=== PATIENT | male | born 1980 | race Caucasian/White ===

== ENCOUNTER 2016-11-10 09:02 | Emergency (ER) | payer OTHER ==
[2016-11-10 09:17] VITALS: BP 129/81
[2016-11-10] MEDS ORDERED: Ketorolac INJ* 30 MG/ML 1 ML VIAL IV ONE (10:10)
[2016-11-10] MEDS ORDERED: Cyclobenzaprine TAB* 10 MG PO ONE (10:12)
[2016-11-10] MEDS ORDERED: HYDROcodone/ACETAMIN 5-325 MG* 1 TAB PO ONE (10:14)
[2016-11-10 10:21] LABS: Hematocrit 44 % (42-52); Hemoglobin 14.6 g/dl (14.0-18.0); Mean Corpuscular HGB Conc 33 g/dl (31-36); Mean Corpuscular Hemoglobin 29 pg (27-31); Mean Corpuscular Volume 89 fL (80-94); Mean Platelet Volume 8 um3 (7.4-10.4); Red Blood Count 4.95 10^6/ul (4.0-5.4); Red Cell Distribution Width 15 % (10.5-15); White Blood Count 8.6 10^3/ul (3.5-10.8)
[2016-11-10 10:32] LABS: Albumin 3.9 g/dL (3.2-5.2); BUN/Creatinine Ratio 19.3 (8-20); Calcium 8.7 mg/dL (8.6-10.3); EGFR African American 135.6 (>60); EGFR Non-African American 105.4 (>60); Globulin 2.6 g/dL (2-4); Potassium 4.2 mmol/L (3.5-5.0); Total Bilirubin 0.3 mg/dL (0.2-1.0); Total Protein 6.5 g/dL (6.4-8.9)
--- NOTE | 2016-11-10 10:56 | RAD ---
INDICATION: Pain with inspiration between the shoulder blades. COMPARISON: There are no prior studies available for comparison. TECHNIQUE: Dual-energy PA and lateral views of the chest were obtained. FINDINGS: The heart is within normal limits in size. Mediastinal and hilar contours appear within normal limits. The lungs are clear. No pleural effusion or pneumothorax is seen. IMPRESSION: NO EVIDENCE FOR ACTIVE CARDIOPULMONARY DISEASE.
--- NOTE | 2016-11-10 10:58 | RAD ---
INDICATION: Back pain. COMPARISON: There are no prior studies available for comparison. TECHNIQUE: AP and lateral films of the spine were obtained centered at the dorsal lumbar junction. FINDINGS: There is a mild dorsal lumbar scoliosis convex toward the right in the dorsal region and toward the left in the lumbar region. The vertebra are otherwise in normal alignment. No fracture is seen. Disc spaces appear maintained. IMPRESSION: MILD SCOLIOSIS, OTHERWISE UNREMARKABLE STUDY.
--- NOTE | 2016-11-10 13:50 | ED ---
I, Oh,Soohmaryun, scribed for Tor Simmons MD on 11/10/16 at 1005 . Back Pain - HPI Summary HPI Summary: This 36 y/o male presents to ED for mid-upper back pain since 2 days ago. He reports heavy lifting on day of onset, but denies any fall or any trauma. Deep breath makes the pain worse, and pt reports dyspnea. Lying back also aggravates the pain. Upright position makes the pain better. Positive chronic, intermittent , nonproductive cough. Pt is current smoker. Pt denies any CP, weakness, numbness/tingling, sore throat, rhinorrhea, n/v, or low back pain. He reports PMHx of "similar neck problem". - History of Current Complaint Chief Complaint: EDBackInjuryPain Stated Complaint: BACK PAIN Time Seen by Provider: 11/10/16 09:30 Hx Obtained From: Patient Onset/Duration: Gradual Onset, Lasting Days Onset/Duration: Started Days Ago, Still Present Timing: Constant Back Pain Location: Is Discrete @ - mid upper back Pain Intensity: 6 Pain Scale Used: 0-10 Numeric Character: Dull Aggravating Symptom(s): Movement - deep breath and lying down Alleviating Symptom(s): Rest, Position - upright position Associated Signs And Symptoms: Negative: Weakness, Numbness, Tingling, Abdominal Pain - Allergies/Home Medications Allergies/Adverse Reactions: Allergies Allergy/AdvReac Type Severity Reaction Status Date / Time Diazepam Allergy Unknown Verified 11/10/16 09:19 Reaction Details PMH/Surg Hx/FS Hx/Imm Hx Psychiatric History: Reports: Hx Anxiety Denies: Hx Eating Disorder, Hx of Violent Episodes Against Others Infectious Disease History: No Infectious Disease History: Denies: Traveled Outside the [place] in Last 30 Days - Family History Family History: FHx of alcohol abuse. FHx of depression. FHx of anxiety disorders - Social History Alcohol Use: None Substance Use Type: Reports: None Hx Tobacco Use: Yes Smoking Status (MU): Current Every Day Smoker Review of Systems Negative: Fever Negative: incontinence Positive: Other - back pain Negative: Weakness, Numbness Negative: Anxious, Depressed All Other Systems Reviewed And Are Negative: Yes Physical Exam - Summary Physical Exam Summary: TTP T6-7 The patient is well-nourished in no acute distress and in no acute pain. The skin is warm and dry and skin color reflects adequate perfusion. Neck is supple with full range of motion and non-tender. There are no carotid bruits. There is no neck vein distension. Respiratory: Chest is non-tender. Lungs are clear to auscultation and breath sounds are symmetrical and equal. Occasional wheeze. Abdomen: The abdomen is soft and non-tender. There are normal bowel sounds heard in all four quadrants and there is no organomegaly palpated. Musculoskeletal: Paracervical region at T6-7 TTP, left sided. Spasm noted. Extremities are non-tender with full range of motion. There is good capillary refill. There is no peripheral edema or calf tenderness elicited. Neurological: Patient is alert and oriented to person, place and time. The patient has symmetrical motor strength in all four extremities. Cranial nerves are grossly intact. Deep tendon reflexes are symmetrical and equal in all four extremities. Psychiatric: The patient has an appropriate affect and does not exhibit any anxiety or depression. Triage Information Reviewed: Yes Vital Signs On Initial Exam: Initial Vitals Temp Pulse Resp BP Pulse Ox 98.7 F 84 16 129/81 100 11/10/16 09:05 11/10/16 09:05 11/10/16 09:05 11/10/16 09:05 11/10/16 09:05 Vital Signs Reviewed: Yes Diagnostics - Vital Signs Vital Signs Temp Pulse Resp BP Pulse Ox 11/10/16 09:05 98.7 F 84 16 129/81 100 - Laboratory Lab Results: Lab Results 11/10/16 11/10/16 11/10/16 Range/Units 10:10 10:10 10:10 WBC 8.6 (3.5-10.8) 10^3/ul RBC 4.95 (4.0-5.4) 10^6/ul Hgb 14.6 (14.0-18.0) g/dl Hct 44 (42-52) % MCV 89 (80-94) fL MCH 29 (27-31) pg MCHC 33 (31-36) g/dl RDW 15 (10.5-15) % Plt Count 190 (150-450) 10^3/ul MPV 8 (7.4-10.4) um3 Neut % (Auto) 65.1 (38-83) % Lymph % (Auto) 23.9 L (25-47) % [place] % (Auto) 8.3 (1-9) % Eos % (Auto) 2.3 (0-6) % Baso % (Auto) 0.4 (0-2) % Absolute Neuts (auto) 5.6 (1.5-7.7) 10^3/ul Absolute Lymphs (auto) 2.0 (1.0-4.8) 10^3/ul Absolute Monos (auto) 0.7 (0-0.8) 10^3/ul Absolute Eos (auto) 0.2 (0-0.6) 10^3/ul Absolute Basos (auto) 0 (0-0.2) 10^3/ul Absolute Nucleated RBC 0 10^3/ul Nucleated RBC % 0 D-Dimer, Quantitative < 200 (Less Than 230) ng/mL Sodium 135 (133-145) mmol/L Potassium 4.2 (3.5-5.0) mmol/L Chloride 106 (101-111) mmol/L Carbon Dioxide 26 (22-32) mmol/L Anion Gap 3 (2-11) mmol/L BUN 16 (6-24) mg/dL Creatinine 0.83 (0.67-1.17) mg/dL Est GFR ( Amer) 135.6 (>60) Est GFR (Non-Af Amer) 105.4 (>60) BUN/Creatinine Ratio 19.3 (8-20) Glucose 94 (70-100) mg/dL Lactic Acid (0.5-2.0) mmol/L Calcium 8.7 (8.6-10.3) mg/dL Total Bilirubin 0.30 (0.2-1.0) mg/dL AST 17 (13-39) U/L ALT 19 (7-52) U/L Alkaline Phosphatase 44 (34-104) U/L Troponin I 0.00 (<0.04) ng/mL B-Natriuretic Peptide ( - 100) pg/mL Total Protein 6.5 (6.4-8.9) g/dL Albumin 3.9 (3.2-5.2) g/dL Globulin 2.6 (2-4) g/dL Albumin/Globulin Ratio 1.5 (1-3) 11/10/16 11/10/16 Range/Units 10:10 10:10 WBC (3.5-10.8) 10^3/ul RBC (4.0-5.4) 10^6/ul Hgb (14.0-18.0) g/dl Hct (42-52) % MCV (80-94) fL MCH (27-31) pg MCHC (31-36) g/dl RDW (10.5-15) % Plt Count (150-450) 10^3/ul MPV (7.4-10.4) um3 Neut % (Auto) (38-83) % Lymph % (Auto) (25-47) % [place] % (Auto) (1-9) % Eos % (Auto) (0-6) % Baso % (Auto) (0-2) % Absolute Neuts (auto) (1.5-7.7) 10^3/ul Absolute Lymphs (auto) (1.0-4.8) 10^3/ul Absolute Monos (auto) (0-0.8) 10^3/ul Absolute Eos (auto) (0-0.6) 10^3/ul Absolute Basos (auto) (0-0.2) 10^3/ul Absolute Nucleated RBC 10^3/ul Nucleated RBC % D-Dimer, Quantitative (Less Than 230) ng/mL Sodium (133-145) mmol/L Potassium (3.5-5.0) mmol/L Chloride (101-111) mmol/L Carbon Dioxide (22-32) mmol/L Anion Gap (2-11) mmol/L BUN (6-24) mg/dL Creatinine (0.67-1.17) mg/dL Est GFR ( Amer) (>60) Est GFR (Non-Af Amer) (>60) BUN/Creatinine Ratio (8-20) Glucose (70-100) mg/dL Lactic Acid 0.8 (0.5-2.0) mmol/L Calcium (8.6-10.3) mg/dL Total Bilirubin (0.2-1.0) mg/dL AST (13-39) U/L ALT (7-52) U/L Alkaline Phosphatase (34-104) U/L Troponin I (<0.04) ng/mL B-Natriuretic Peptide 8 ( - 100) pg/mL Total Protein (6.4-8.9) g/dL Albumin (3.2-5.2) g/dL Globulin (2-4) g/dL Albumin/Globulin Ratio (1-3) Result Diagrams: 11/10/16 10:10 11/10/16 10:10 Lab Statement: Any lab studies that have been ordered have been reviewed, and results considered in the medical decision making process. - Radiology T-spine Xray Interpretation: No Acute Changes - MILD SCOLIOSIS, OTHERWISE UNREMARKABLE STUDY. Radiology Interpretation Completed By: Radiologist CXR Xray Interpretation: No Acute Changes Radiology Interpretation Completed By: Radiologist - EKG 9:20 Cardiac Rate: NL - 71 bpm EKG Rhythm: Sinus Rhythm EKG Interpretation: Early Repolarization; Normal [place] Re-Evaluation - Re-Evaluation First Eval Re-Evaluation Time: 11:36 Change: Improved Comment: The patient states that he feels much better. Reviewed Xray and lab results with the patient and he agrees with the treatment plan. Back Pain Course/Dx - Course Assessment/Plan: A 36 y/o male presents to ED for mid-upper back pain since 2 days ago. He reports heavy lifting on day of onset, but denies any fall or any trauma. Lab results were reviewed and WNL. Thoracic spine XRAY shows mild scoliosis. CXR shows no acute changes. In the ED course, the patient was given Flexeril, Provencal, and Toradol. PE, pneumonia, and MO were all considered and returned negative. The patient will be discharged home on Flexeril and Provencal and follow-up with his PCP. - Diagnoses Differential Diagnosis/HQI/PQRI: Positive: Arthritis, Fracture, Herniated Disc, Other - mi, pe, pneumonia, strain, Provider Diagnoses: Upper back strain Discharge - Discharge Plan Condition: Stable Disposition: HOME Prescriptions: Cyclobenzaprine TAB* [Flexeril TAB*] 10 mg PO TID PRN #30 tab PRN Reason: pain HYDROcodone/ACETAMIN 5-325 MG* [Provencal 5-325 TAB*] 1 tab PO Q6H PRN #20 tab MDD 4 PRN Reason: pain Patient Education Materials: Hydrocodone/Acetaminophen (By mouth), Cyclobenzaprine (By mouth), Back Pain (ED) Forms: *Work Release Referrals: Joann Billingsley [facility] PICKUP DRIVER [Primary Care Provider] - Additional Instructions: Please follow-up with your primary care physician in two days. The documentation as recorded by the Yan oscar Soohyun accurately reflects the service I personally performed and the decisions made by me, Tor Simmons MD.
== END 2016-11-10 11:50 | disposition home or self-care (01) ==
LOC: ED 09:02
DX: S29.012A Strain of muscle and tendon of back wall of thorax, initial encounter (principal); M54.9 Dorsalgia, unspecified; R06.00 Dyspnea, unspecified; F17.210 Nicotine dependence, cigarettes, uncomplicated; W19.XXXA Unspecified fall, initial encounter; Y93.9 Activity, unspecified; Y92.9 Unspecified place or not applicable
CPT/HCPCS: 36415; 71020; 72080; 80053; 83605; 83880; 84484; 85025; 85379; 93005; 96374; 99283; A9270-GY; J1885

== ENCOUNTER 2017-05-10 07:35 | Emergency (ER) | payer OTHER ==
[2017-05-10 07:38] VITALS: BP 138/89
[2017-05-10] MEDS ORDERED: Fluorescein Sodium TOPICAL* 1 MG TEST ONE (07:44)
[2017-05-10] MEDS ORDERED: oxyCODONE/Acetamin 5/325 MG* TAB PO ONE (07:55)
--- NOTE | 2017-05-10 08:21 | ED ---
Francesco Bautista Auryana, scribed for Omar Keller MD on 05/10/17 at 0753 . Throat Pain/Nasal Congestion - HPI Summary HPI Summary: 36 year old male presents with right eye pain starting yesterday at 19:00. Patient reports that last night he was unloading a trailer and poked himself in the eye. The pain is a 6/10. The pain is made worse by movement-8/10. He reports that it was difficult to sleep last night. He denies any significant PMHx. SHx is significant for tobacco use. He denies any significant FHx. - History of Current Complaint Chief Complaint: EDEyeProblem Time Seen by Provider: 05/10/17 07:41 Hx Obtained From: Patient Onset/Duration: Sudden Onset, Lasting Hours - about 12 hours ago - yesterday at 19:00, Still Present Severity: Moderate - 6/10 but on movement 8/10 Associated Signs And Symptoms: Negative: Negative - reports trouble sleeping Cough: None Related History: Smoking - Allergies/Home Medications Allergies/Adverse Reactions: Allergies Allergy/AdvReac Type Severity Reaction Status Date / Time Diazepam Allergy Unknown Verified 11/10/16 09:19 Reaction Details PMH/Surg Hx/FS Hx/Imm Hx Psychiatric History: Reports: Hx Anxiety Denies: Hx Eating Disorder, Hx of Violent Episodes Against Others Infectious Disease History: Denies: Traveled Outside the [place] in Last 30 Days - Family History Known Family History: Negative: Cardiac Disease, Hypertension, Diabetes Family History: FHx of alcohol abuse. FHx of depression. FHx of anxiety disorders - Social History Occupation: Employed Full-time Lives: With Family Alcohol Use: None Hx Substance Use: No Substance Use Type: Reports: None Hx Tobacco Use: Yes Smoking Status (MU): Current Every Day Smoker Review of Systems Positive: Other - reports trouble sleeping . Negative: Fever Positive: Other - pain on movement ENT: Negative Cardiovascular: Negative Respiratory: Negative Gastrointestinal: Negative Genitourinary: Negative Musculoskeletal: Negative Skin: Negative Neurological: Negative Psychological: Normal All Other Systems Reviewed And Are Negative: Yes Physical Exam - Summary Physical Exam Summary: VITAL SIGNS: Reviewed. GENERAL: Patient is a well-developed and nourished male who is lying comfortable in the stretcher. Patient is not in any acute respiratory distress. HEAD AND FACE: No signs of trauma. No ecchymosis, hematomas or skull depressions. No sinus tenderness. EYES: PERRLA, EOMI x 2, no nystagmus. Right corneal abrasion with diffuse conjunctiva erythema and increased lacrimation. EARS: Hearing grossly intact. Ear canals and tympanic membranes are within normal limits. MOUTH: Oropharynx within normal limits. NECK: Supple, trachea is midline, no adenopathy, no JVD, no carotid bruit, no c- spine tenderness, neck with full ROM. CHEST: Symmetric, no tenderness at palpation LUNGS: Clear to auscultation bilaterally. No wheezing or crackles. CVS: Regular rate and rhythm, S1 and S2 present, no murmurs or gallops appreciated. ABDOMEN: Soft, non-tender. No signs of distention. No rebound no guarding, and no masses palpated. Bowel sounds are normal. EXTREMITIES: FROM in all major joints, no edema, no cyanosis or clubbing. NEURO: Alert and oriented x 3. No acute neurological deficits. Speech is normal and follows commands. SKIN: Dry and warm. Triage Information Reviewed: Yes Vital Signs On Initial Exam: Initial Vitals Temp Pulse Resp BP Pulse Ox 97.9 F 67 17 138/89 98 05/10/17 07:36 05/10/17 07:36 05/10/17 07:36 05/10/17 07:36 05/10/17 07:36 Vital Signs Reviewed: Yes Diagnostics - Vital Signs Vital Signs Temp Pulse Resp BP Pulse Ox 05/10/17 07:36 97.9 F 67 17 138/89 98 - Laboratory Lab Statement: Any lab studies that have been ordered have been reviewed, and results considered in the medical decision making process. EENT Course/Dx - Course Assessment/Plan: 36 year old male presents with right eye pain starting yesterday at 19:00. Patient reports that last night he was unloading a trailer and poked himself in the eye. The pain is a 6/10. The pain is made worse by movement-8/10. He reports that it was difficult to sleep last night. He denies any significant PMHx. SHx is significant for tobacco use. He denies any significant FHx. I placed tetracaine drops in the right eye and the symptoms of pain improved. Then, I did fluorescein staining and there was a positive uptake of the stain across the central cornea. We will give the patient erythromycin ointment and a prescription for Percocet. Patient will be discharged home with follow up with ophthalmology. The patient was instructed to return to the emergency department if the pain increases despite pain medication, or if he develops fever, chills, or any headaches. All questions were answered at patient satisfaction. There were no further complaints or concerns. Lung exam before discharge: CTA B/L. Good air exchange. No wheezing or crackles heard. CVS: S1 and S2 present. No murmurs appreciated. Patient is alert and oriented x 3. Patient is hemodynamically stable. Patient will be discharged home with follow up PCP in the next 2-3 days - Differential Diagnoses Differential Diagnoses: Abrasion - Diagnoses Provider Diagnoses: Corneal abrasion Discharge - Discharge Plan Condition: Stable Disposition: HOME Prescriptions: Erythromycin TOPICAL GEL* [Erythromycin OPTH OINT*] 1 applic TOPICAL TID #1 tube oxyCODONE/Acetamin 5/325 MG* [Percocet 5/325 TAB*] 1 tab PO Q6H PRN #12 tab MDD 4 tabs PRN Reason: Pain Patient Education Materials: Corneal Abrasion (ED), Erythromycin (Into the eye ) Forms: *Work Release Referrals: Johnathon Buckley MD [Medical Doctor] - 2 Days Eye Complaint - HPI Summary HPI Summary: 36 year old male presents with right eye pain starting yesterday at 19:00. Patient reports that last night he was unloading a trailer and poked himself in the eye. The pain is a 6/10. The pain is made worse by movement-8/10. He reports that it was difficult to sleep last night. He denies any significant PMHx. SHx is significant for tobacco use. He denies any significant FHx. 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, Still Present Timing: Constant Severity Initially: Moderate Severity Currently: Moderate Location: Right Eye Discrete @: - cornea Character: Throbbing Alleviating Factor(s): Other - rest - slight improvement of the eye Associated Signs And Symptoms: Negative - pain on eye movement Eyes: 1 - abrasion - Allergies/Home Medications Allergies/Adverse Reactions: Allergies Allergy/AdvReac Type Severity Reaction Status Date / Time Diazepam Allergy Unknown Verified 11/10/16 09:19 Reaction Details The documentation as recorded by the Francesco oscar Auryana accurately reflects the service I personally performed and the decisions made by Krishna edge Walter, MD.
[2017-05-10] MEDS ORDERED: Erythromycin OPTH OINT* APPLIC OINT RIGHT EYE SCH (09:00)
== END 2017-05-10 08:22 | disposition home or self-care (01) ==
LOC: ED 07:35
DX: S05.01XA Injury of conjunctiva and corneal abrasion without foreign body, right eye, initial encounter (principal); W22.8XXA Striking against or struck by other objects, initial encounter; Y93.89 Activity, other specified; Y92.9 Unspecified place or not applicable; F17.200 Nicotine dependence, unspecified, uncomplicated
CPT/HCPCS: 99282; A9270-GY

== ENCOUNTER 2017-10-02 16:13 | Emergency (ER) | payer OTHER ==
[2017-10-02 17:59] LABS: Hematocrit 46 % (42-52); Hemoglobin 15.1 g/dl (14.0-18.0); Mean Corpuscular HGB Conc 33 g/dl (31-36); Mean Corpuscular Hemoglobin 29 pg (27-31); Mean Corpuscular Volume 89 fL (80-94); Mean Platelet Volume 7 um3 (7.4-10.4); Red Blood Count 5.16 10^6/ul (4.0-5.4); Red Cell Distribution Width 14 % (10.5-15); White Blood Count 14.5 10^3/ul (3.5-10.8)
[2017-10-02 18:15] LABS: Albumin 4.4 g/dL (3.2-5.2); BUN/Creatinine Ratio 16.2 (8-20); Calcium 9.4 mg/dL (8.6-10.3); EGFR African American 110.6 (>60); Globulin 3.1 g/dL (2-4); Total Bilirubin 0.3 mg/dL (0.2-1.0); Total Protein 7.5 g/dL (6.4-8.9)
[2017-10-02 18:55] VITALS: BP 0/0
== END 2017-10-02 17:55 | disposition left against medical advice (07) ==
LOC: ED 16:13
DX: R10.30 Lower abdominal pain, unspecified (principal); Z53.21 Procedure and treatment not carried out due to patient leaving prior to being seen by health care provider
CPT/HCPCS: 36415; 80053; 83690; 85025; 86141

== ENCOUNTER 2017-10-03 07:39 | Inpatient (IN) | payer OTHER ==
[2017-10-03 09:35] LABS: Hematocrit 43 % (42-52); Hemoglobin 14.5 g/dl (14.0-18.0); Mean Corpuscular HGB Conc 33 g/dl (31-36); Mean Corpuscular Hemoglobin 30 pg (27-31); Mean Corpuscular Volume 88 fL (80-94); Mean Platelet Volume 7 um3 (7.4-10.4); Red Blood Count 4.91 10^6/ul (4.0-5.4); Red Cell Distribution Width 14 % (10.5-15); White Blood Count 15.8 10^3/ul (3.5-10.8)
[2017-10-03 09:37] LABS: Urine Bacteria Absent (Absent); Urine Bilirubin Negative (Negative); Urine Glucose Negative (Negative); Urine Nitrite Negative (Negative)
[2017-10-03] MEDS ORDERED: Morphine INJ* 2 MG/ML 1 ML CARPUJECT IV ONE ×2 (09:40→13:46)
[2017-10-03 09:50] LABS: Albumin 3.9 g/dL (3.2-5.2); BUN/Creatinine Ratio 17.9 (8-20); Calcium 9.1 mg/dL (8.6-10.3); EGFR African American 133.7 (>60); Globulin 2.9 g/dL (2-4); Potassium 4.3 mmol/L (3.5-5.0); Total Bilirubin 0.3 mg/dL (0.2-1.0); Total Protein 6.8 g/dL (6.4-8.9)
[2017-10-03] MEDS ORDERED: Morphine INJ* 2 MG/ML 1 ML SYRINGE (TWO MG - NEW SYRINGE VERSION) ONE (09:52)
[2017-10-03] MEDS ORDERED: Iohexol 300* (CONTRAST) 10 ML SDV IV ONE (11:00)
--- NOTE | 2017-10-03 11:42 | RAD ---
Indication: Lower abdominal pain. Contrast: Administered 97.1 ml of OMNIPAQUE 300 mg/ml CT of the abdomen and pelvis was performed after oral and IV contrast administration. Coronal and sagittal reconstructed images were obtained. Lung bases demonstrate no pleural fluid, nodules or masses. Heart is of normal size without pericardial effusion. Liver is normal in size. No focal lesions or intrahepatic duct dilatation is noted. Area of focal fatty sparing is noted in the anterior medial segment left lobe of liver. The gallbladder demonstrates no calcified gallstones. No pericholecystic fluid or wall thickening is noted. Spleen demonstrates multiple calcifications from old granulomatous disease. Pancreas demonstrates no mass or pancreatic ductal dilatation. The common duct is not dilated. No adrenal masses are noted. The kidneys demonstrate symmetric nephrograms without focal lesions. No retroperitoneal lymphadenopathy is noted. CT of the pelvis demonstrates no retroperitoneal or pelvic adenopathy. Mildly atherosclerotic aorta is noted. No dilated loops of bowel are noted. The colon is filled with stool. There is wall thickening noted in the sigmoid colon. There appears to be a loculated fluid collection just to the left sigmoid colon measuring 3.2 x 3.5 cm. This may represent a peridiverticular abscess. IMPRESSION: Likely diverticulitis with a 3.4 cm peridiverticular abscess in the pelvis. Old granulomatous disease of the spleen is noted.
[2017-10-03] MEDS ORDERED: Ondansetron INJ* 2 MG/ML VIAL IV PRN (13:59)
[2017-10-03] MEDS: Ciprofloxacin 400MG IVPREMIX(* 400 MG/200 ML BAG IVPB SCH (14:36)
[2017-10-03] MEDS: metroNIDAZOLE IV 500 MG/100ML* 500 MG/100 ML BAG IVPB SCH ×2 (17:08→21:18)
[2017-10-03] MEDS: Morphine INJ* 2 MG/ML 1 ML SYRINGE (TWO MG - NEW SYRINGE VERSION) IV PRN ×2 (18:01→21:54)
--- NOTE | 2017-10-03 21:13 | CONS ---
CC: [facility]; [facility]; [facility] [place] * CONSULTATION REPORT: DATE OF CONSULT: 10/03/17 REFERRING PROVIDER: Dr. Nirmal Mar from the emergency room. REASON FOR CONSULT: Left lower quadrant and suprapubic pain. HISTORY OF PRESENT ILLNESS: Mr. Anibal Murray is a 36-year-old gentleman who has an otherwise unremarkable past medical history, who developed some left lower quadrant and suprapubic discomfort almost 2 weeks ago. He states that he was treated with Augmentin for a dental infection and had some looser bowel movements prior to that, but he has had no fevers, shakes, or chills. He has had no back discomfort. He has had no blood per rectum or melena. He has had no urinary complaints. The pain is constant and he describes shooting, stabbing discomfort some times down into his scrotum. He has had a good appetite, but eating irregular diet. He presented to the emergency room after the pain became increasingly uncomfortable and unbearable. When seen in the emergency room, he was noted to be afebrile with stable vital signs. His laboratory workup included a white blood cell count of 15,800. Electrolytes, BUN, and creatinine were all within normal limits. He had normal liver transaminases. Urinalysis showed 1+ blood, but otherwise was unremarkable. He underwent a CT scan of the abdomen and pelvis. I did review these images. This shows wall thickening noted in the sigmoid colon. I do not appreciate significant amount of diverticular disease, however. There appears to be a loculated fluid collection, possibly consistent with an abscess versus a phlegmon about 3 cm x 3.5 cm just to the left of the sigmoid colon. There is no extraluminal air, significant free abdominal fluid. There is no evidence of obstruction. The bladder appeared to be unremarkable. The patient is being admitted to the medical service and surgical consultation to be obtained. PAST MEDICAL HISTORY: Unremarkable. PAST SURGICAL HISTORY: None. ALLERGIES: DIAZEPAM. SOCIAL HISTORY: He smokes. He does not drink alcohol. 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 He lives in the [place] area. REVIEW OF SYSTEMS: Otherwise unremarkable. PHYSICAL EXAM: Temperature 98.9, pulse 81, blood pressure 156/88. In general, he is a slender male, sitting upright in bed, appears to be in no apparent distress. The lungs were clear to auscultation with normal respiratory effort. Heart has a regular rate and rhythm without murmurs, rubs, or gallops. His abdomen is soft and nondistended. He had diminished bowel sounds throughout. There are no prior surgical incisions. I appreciate no hernias. He has tenderness in the left lower quadrant and suprapubic area, fairly localized area with some voluntary guarding, but no peritoneal signs, rigidity or generalized tenderness. He is nondistended. Psychiatric: He is awake, alert, and oriented x3. He appears to have normal judgement and insight. IMPRESSION: Colitis with thickening of the sigmoid colon, a possible diverticula with an apparent possible diverticular abscess and/or phlegmon. There is no extraluminal air. He does not have generalized peritonitis and although he does have a leukocytosis, does not have overt sepsis. He gives a history of recently being on oral antibiotics for a dental condition , but does not have any long-term history of GI issues or problems. At this point, I do not feel that there is an urgent surgical indication present and would recommend treating this with IV antibiotics, IV fluids and a limited diet. I am not certain that the small possible abscess is amenable to drainage nor does it need to be. This may well be a phlegmon, but it may need serial CAT scans to follow before decision on this could be made. At this point , I agree with IV antibiotics and observation. I discussed all of this with him. Certainly want to avoid emergent surgery in this situation and I discussed this with him and I answered his questions. Thank you for the consultation. We will follow him closely with you. [id number]/[facility] #: [id number] RINA
--- NOTE | 2017-10-03 22:04 | HP ---
CC: Joann Billingsley NP * HISTORY AND PHYSICAL: DATE OF ADMISSION: 10/03/17 PRIMARY CARE PROVIDER: Joann Billingsley NP ATTENDING PHYSICIAN: Dr. Samuel Mcmanus * (dictated by Verenice Alejandro NP) HISTORY OF PRESENT ILLNESS: Mr. Murray is a 36-year-old male with past medical history significant for anxiety and depression, who presents to the hospital with complaints of significant abdominal pain for 3 days. The patient reports that the pain is constant, he has found nothing that makes it better or worse. He has tried ibuprofen and acetaminophen at home. He reports that he has actually had this pain for the last 3 weeks but it has become more significant over the last 3 days. The pain is located in his lower abdomen. It does not radiate. He denies any fever, chills, nausea, vomiting, bloody stools, dysuria, urinary frequency, hematuria, flank pain, shortness of breath, chest pain. Due to his continued symptoms, he presented to the emergency room for further evaluation. While in the emergency room, the patient had labs significant for leukocytosis of 15.8. He had a negative urinalysis. He had an abdomen and pelvis CT showing a likely diverticulitis and a peridiverticular abscess. The ER provider contacted the surgeon, who felt he just needed IV antibiotics and not surgical intervention at this time. The hospitalists were asked to evaluate the patient for admission. PAST MEDICAL HISTORY: Anxiety and depression. PAST SURGICAL HISTORY: None. HOME MEDICATIONS: None. ALLERGIES: DIAZEPAM. FAMILY HISTORY: The patient denies any family history of coronary artery disease, diabetes mellitus. He reports a family history of lung cancer. SOCIAL HISTORY: The patient smokes a pack a day and has smoked for approximately 20 years. He denies alcohol or recreational drug use. His father , Kumar Murray, will be his surrogate medical decision maker in the event he is unable to make decisions for himself. REVIEW OF SYSTEMS: I performed a 14-point review of systems. All the pertinent positives and negatives are mentioned in the history of present illness. The remaining review of systems is negative. PHYSICAL EXAMINATION GENERAL APPEARANCE: The patient is alert, pleasant, and appears to be in no acute distress. VITAL SIGNS: Temperature 98.9, heart rate 81, respiratory rate 19, O2 sat 96% on room air, blood pressure 156/88. HEENT: Head: Normocephalic, atraumatic. EENT: Pupils are equal and reactive to light. Extraocular movements are intact. RESPIRATORY: There is no accessory muscle use. Lungs are clear to auscultation bilateral. CARDIOVASCULAR: Regular rate and rhythm. S1, S2 present. There are no murmurs, rubs, or gallops heard. ABDOMEN: Soft, nontender, and nondistended. There are bowel sounds present x4. EXTREMITIES: There is no lower extremity edema. DP and PT pulses are 2+ and symmetric. NEUROLOGIC: The patient is alert and oriented x4. Cranial nerves II through XII are grossly intact. MUSCULOSKELETAL: There is no clubbing or cyanosis noted. The patient exhibits good strength in all extremities. PSYCHOLOGICAL: The patient is calm and cooperative. SKIN: There are no rashes or abnormalities seen. DIAGNOSTIC STUDIES/LAB DATA: Sodium 136, potassium 4.3, chloride 105, CO2 27, BUN 15, creatinine 0.84, glucose 103. White blood cell count 15.8, hemoglobin 15.5, hematocrit 43, platelet count 267. Urinalysis negative. Abdomen and pelvis CT from today. Radiologist's impression: Likely diverticulitis with a 3.4-cm peridiverticular abscess in the pelvis. Old granulomatous disease of the spleen is noted. IMPRESSION: Mr. Murray is a 36-year-old man with past medical history significant for anxiety and depression, who presented to the emergency room with complaints of abdominal pain and was found to have diverticulitis with abscess. He will be admitted as an inpatient. ASSESSMENT AND PLAN: 1. Diverticulitis with abscess. Surgery has reviewed the films and recommended admission from medical management with IV antibiotics. I have also had Radiology review the imaging and the abscess was too small to percutaneously drain. The patient will be placed on Cipro and Flagyl IV. He currently has leukocytosis but is afebrile. We will place him on a clear liquid diet, provide him with pain medication and IV hydration. If he does not show signs of improvement, we will ask Surgery to consult on him. 2. Anxiety and depression. The patient is not currently on any medications. We will provide supportive care. 3. Fluid, electrolytes, nutrition. The patient will be on clear liquid diet. 4. Code status. Full code. 5. DVT prophylaxis. The patient is at low risk, will be encouraged to ambulate. 6. Disposition. Inpatient. TIME SPENT: Time for this admission was approximately 60 minutes, greater than half of that was spent with the patient discussing medications, past medical history, and the events leading up to his arrival today, performing a physical examination. The case has been reviewed with the attending, Dr. Mcmanus, who agrees with the plan of care. Reviewed by SOCORRO SEQUEIRA 10/08/172003 [id number]/[facility] #: [id number] RINA
[2017-10-04] MEDS: Ciprofloxacin 400MG IVPREMIX(* 400 MG/200 ML BAG IVPB SCH ×2 (02:09→14:21)
[2017-10-04] MEDS: Morphine INJ* 2 MG/ML 1 ML SYRINGE (TWO MG - NEW SYRINGE VERSION) IV PRN ×2 (02:09→06:22)
[2017-10-04] MEDS: metroNIDAZOLE IV 500 MG/100ML* 500 MG/100 ML BAG IVPB SCH ×4 (04:20→21:49)
[2017-10-04 08:12] LABS: Hematocrit 42 % (42-52); Hemoglobin 13.8 g/dl (14.0-18.0); Mean Corpuscular HGB Conc 33 g/dl (31-36); Mean Corpuscular Hemoglobin 29 pg (27-31); Mean Corpuscular Volume 88 fL (80-94); Mean Platelet Volume 7 um3 (7.4-10.4); Red Blood Count 4.71 10^6/ul (4.0-5.4); Red Cell Distribution Width 14 % (10.5-15); White Blood Count 12.9 10^3/ul (3.5-10.8)
--- NOTE | 2017-10-04 08:52 | PN ---
Subjective Date of Service: 10/04/17 Interval History: Mr. Murray reports feeling better this morning. He continues to have lower mid abdominal pain but it is much improved. He denies other complaint including chest pain, SOB, or nausea. He is tolerating clear liquids. Objective Active Medications: Ciprofloxacin/Dextrose (Cipro 400 Mg Ivpremix(*)) 400 mg in 200 mls @ 200 mls/ hr IVPB Q12H TYRA Metronidazole/Sodium Chloride (Flagyl 500 Mg Ivpb*) 500 mg in 100 mls @ 100 mls /hr IVPB Q6H TYRA Lactated Ringer's (Lactated Ringers 1000 Ml Bag*) 1,000 mls @ 100 mls/hr IV PER RATE TYRA Morphine Sulfate (Morphine Inj (Syringe)*) 2 mg IV Q4H PRN Ondansetron HCl (Zofran Inj*) 4 mg IV Q6H PRN Vital Signs: Temp Pulse Resp BP Pulse Ox 98.3 F 72 16 114/72 98 10/04/17 07:34 10/04/17 07:34 10/04/17 08:19 10/04/17 07:34 10/04/17 07:34 Oxygen Devices in Use Now: None Appearance: Male sitting up in bed in NAD Eyes: No Scleral Icterus Ears/Nose/Mouth/Throat: Mucous Membranes Moist Neck: Trachea Midline Respiratory: Symmetrical Chest Expansion and Respiratory Effort, Clear to Auscultation Cardiovascular: NL Sounds; No Murmurs; No JVD, No Edema Abdominal: - - Soft, mild tenderness to palpation in mid low abdomen Extremities: No Edema Skin: No Rash or Ulcers Neurological: Alert and Oriented x 3, NL Muscle Strength and Tone Result Diagrams: 10/04/17 07:58 10/03/17 09:17 Assess/Plan/Problems-Billing Assessment: Mr. Murray is a 36 yo male with no significant PMH who was admitted on with first episode of diverticulitis with abscess vs. phlegmon. - Patient Problems (1) Diverticulitis Comment: - Leukocytosis improved, afebrile. - With abscess vs phlegmon, without intraperitoneal free air. - Appreciate surgical consultation, no indication for surgery at this point. - Continue cipro and flagyl. - Continue clear liquids. (2) DVT prophylaxis Comment: - Early mobility. Status and Disposition: Inpatient. Anticipate discharge to home when medically stable.
--- NOTE | 2017-10-04 09:40 | PN ---
Progress Note - Progress Note Date of Service: 10/04/17 SOAP: Subjective: Still with suprapubic abd pain but slightly improved Passing flatus Hungry and wants to eat Objective: Temp Pulse Resp BP Pulse Ox 98.3 F 72 16 114/72 98 10/04/17 07:34 10/04/17 07:34 10/04/17 08:19 10/04/17 07:34 10/04/17 07:34 PEX: Comfortable Abd is soft and non-distended. Bowel sounds are present. There is localized suprapubic pain without mass or peritoneal irritation. Laboratory Results - last 24 hr 10/03/17 10/03/17 10/03/17 09:17 09:17 09:17 WBC RBC Hgb Hct MCV MCH MCHC RDW Plt Count MPV Neut % (Auto) Lymph % (Auto) [place] % (Auto) Eos % (Auto) Baso % (Auto) Absolute Neuts (auto) Absolute Lymphs (auto) Absolute Monos (auto) Absolute Eos (auto) Absolute Basos (auto) Absolute Nucleated RBC Nucleated RBC % Sodium 136 Potassium 4.3 Chloride 105 Carbon Dioxide 27 Anion Gap 4 BUN 15 Creatinine 0.84 Est GFR ( Amer) 133.7 Est GFR (Non-Af Amer) 104.0 BUN/Creatinine Ratio 17.9 Glucose 103 H Calcium 9.1 Total Bilirubin 0.30 AST 13 ALT 13 Alkaline Phosphatase 52 Total Protein 6.8 Albumin 3.9 Globulin 2.9 Albumin/Globulin Ratio 1.3 Urine Color Yellow Urine Appearance Clear Urine pH 5.0 Ur Specific Dalton 1.026 Urine Protein Negative Urine Ketones Negative Urine Blood Negative Urine Nitrate Negative Urine Bilirubin Negative Urine Urobilinogen Negative Ur Leukocyte Esterase Trace H Urine WBC (Auto) Trace(0-5/hpf) Urine RBC (Auto) 1+(3-5/hpf) H Urine Bacteria Absent Urine Glucose Negative HIV 1&2 Antibody Nonreactive 10/04/17 07:58 WBC 12.9 H RBC 4.71 Hgb 13.8 L Hct 42 MCV 88 MCH 29 MCHC 33 RDW 14 Plt Count 253 MPV 7 L Neut % (Auto) 71.8 Lymph % (Auto) 15.7 L [place] % (Auto) 10.3 H Eos % (Auto) 1.7 Baso % (Auto) 0.5 Absolute Neuts (auto) 9.3 H Absolute Lymphs (auto) 2.0 Absolute Monos (auto) 1.3 H Absolute Eos (auto) 0.2 Absolute Basos (auto) 0.1 Absolute Nucleated RBC 0 Nucleated RBC % 0 Sodium Potassium Chloride Carbon Dioxide Anion Gap BUN Creatinine Est GFR ( Amer) Est GFR (Non-Af Amer) BUN/Creatinine Ratio Glucose Calcium Total Bilirubin AST ALT Alkaline Phosphatase Total Protein Albumin Globulin Albumin/Globulin Ratio Urine Color Urine Appearance Urine pH Ur Specific Dalton Urine Protein Urine Ketones Urine Blood Urine Nitrate Urine Bilirubin Urine Urobilinogen Ur Leukocyte Esterase Urine WBC (Auto) Urine RBC (Auto) Urine Bacteria Urine Glucose HIV 1&2 Antibody Assessment: Sigmoid colitis with possible small abscess v phlegmon--? diverticular. Appendix normal on CT. Improving WBC, no fever Plan: Continue IV abx Clear liquids and advance to low residue diet If continued improvement d/c on oral antibiotics in next 24-48 hours Will require outpatient colonoscopy when recovered If worsens, repeat CT
[2017-10-04] MEDS: Morphine INJ* 4 MG/ML 1 ML CARPUJECT IV PRN ×4 (10:04→23:09)
[2017-10-04 18:06] LABS: C Reactive Protein 30.02 mg/L (< 5.00)
[2017-10-05] MEDS: Ciprofloxacin 400MG IVPREMIX(* 400 MG/200 ML BAG IVPB SCH (01:54)
[2017-10-05] MEDS: metroNIDAZOLE IV 500 MG/100ML* 500 MG/100 ML BAG IVPB SCH ×2 (04:26→10:13)
[2017-10-05] MEDS: Morphine INJ* 4 MG/ML 1 ML CARPUJECT IV PRN ×3 (04:26→10:13)
--- NOTE | 2017-10-05 08:33 | PN ---
Subjective Date of Service: 10/05/17 Interval History: Mr. Murray reports feeling well today. He continues to have a tender spot in his low-mid abdomen. He reports having a bowel movement overnight. He is hungry and hoping for eggs for breakfast. Objective Active Medications: Ciprofloxacin/Dextrose (Cipro 400 Mg Ivpremix(*)) 400 mg in 200 mls @ 200 mls/ hr IVPB Q12H TYRA Metronidazole/Sodium Chloride (Flagyl 500 Mg Ivpb*) 500 mg in 100 mls @ 100 mls /hr IVPB Q6H TYRA Lactated Ringer's (Lactated Ringers 1000 Ml Bag*) 1,000 mls @ 100 mls/hr IV PER RATE TYRA Morphine Sulfate (Morphine Inj (Syringe)*) 4 mg IV Q2H PRN Ondansetron HCl (Zofran Inj*) 4 mg IV Q6H PRN Vital Signs: Temp Pulse Resp BP Pulse Ox 98.1 F 76 18 121/67 98 10/05/17 03:23 10/05/17 03:23 10/05/17 07:59 10/05/17 03:23 10/05/17 03:23 Oxygen Devices in Use Now: None Appearance: Male lying in bed in NAD Eyes: No Scleral Icterus Ears/Nose/Mouth/Throat: Mucous Membranes Moist Neck: Trachea Midline Respiratory: Symmetrical Chest Expansion and Respiratory Effort, Clear to Auscultation Cardiovascular: NL Sounds; No Murmurs; No JVD, No Edema Abdominal: - - Soft, tender to palpation in low-mid abdomen, BS +, no rebound or guarding Extremities: No Edema Skin: No Rash or Ulcers Neurological: Alert and Oriented x 3, NL Muscle Strength and Tone Nutrition: Taking PO's Result Diagrams: 10/04/17 07:58 10/03/17 09:17 Assess/Plan/Problems-Billing Assessment: Mr. Murray is a 36 yo male with no significant PMH who was admitted on with first episode of diverticulitis with abscess vs. phlegmon. - Patient Problems (1) Diverticulitis Comment: - BM overnight, good appetite, continues to have only mid-low abdomen tenderness. - Leukocytosis improved, afebrile. - With abscess vs phlegmon, without intraperitoneal free air. - Appreciate surgical consultation, no indication for surgery at this point. - Continue cipro and flagyl. - Advance diet as tolerated. (2) DVT prophylaxis Comment: - Early mobility. Status and Disposition: Inpatient. Anticipate discharge to home when medically stable.
[2017-10-05 09:03] VITALS: BP 116/73
--- NOTE | 2017-10-06 04:54 | DS ---
CC: Jonan Billingsley NP * [facility] MEDICINE DISCHARGE SUMMARY: DATE OF ADMISSION: 10/03/17 DATE OF DISCHARGE: 10/05/17 PRIMARY CARE PROVIDER: Joann Billingsley NP ATTENDING PHYSICIAN: Patrick Lazcano M.D. * (dictation provided by Christin Yuan NP). PRIMARY DIAGNOSIS: Diverticulitis with suspected abscess. SECONDARY DIAGNOSES: 1. Anxiety. 2. Depression. PAST SURGICAL HISTORY: None. MEDICATIONS: At the time of discharge: 1. Cipro 500 mg p.o. b.i.d. x 19 days. 2. Flagyl 500 mg p.o. t.i.d. x 19 days. 3. Oxycodone 5/325 mg 1 tab p.o. q.6 hours p.r.n. pain. HOSPITAL COURSE: Mr. Murray is a 36-year-old male with past medical history of anxiety and depression who presented to the hospital on 10/03/17 with concern for abdominal pain. Please see the dictated H and P from Verenice Torrez for complete details. In brief, the patient had reported pain in the low mid abdomen for about 3 days. In the ED, he had a CT of the abdomen and pelvis, which showed a likely diverticulitis and peridiverticular abscess. The patient had no history of diverticulitis in the past. His white count was 15.8. He was afebrile and hemodynamically stable. Mr. Murray was admitted to the hospital. He was placed on Cipro and Flagyl intravenously. He was seen in consultation by Dr. Campoverde from surgical services who agreed that this was likely diverticular in nature and that there is no immediate surgical procedure indicated. Mr. Murray has been doing well. He has had his diet advanced from clear liquids to soft bland diet. He has tolerated that well. He has had a bowel movement here in the hospital. He continues to have some low mid abdominal pain with palpation only. His abdomen is otherwise soft and there is no rebound tenderness or guarding. Mr. Murray is medically stable for discharge to home to complete a total of 3- week course of antibiotics. He has been recommended to follow up with the [facility] or another GI physician of his choosing for consultation and likely colonoscopy as this is a new diagnosis of suspected diverticulitis. DISPOSITION: Home. DIET: Soft, bland. ACTIVITY: As tolerated. FOLLOWUP PLANS: 1. Please follow up with [facility] or another GI of his choosing. 2. Please follow up with his primary care provider. The patient is asked to call both the providers on Friday and for an appointment. TIME SPENT: Approximately 60 minutes was spent on the discharge of this patient , more than half that time spent with the patient at the bedside reviewing the events leading up to this hospitalization, performing the physical examination, and reviewing the plan of care. CHRISTIN YUAN NP [id number]/[facility] #: [id number] RINA
== END 2017-10-05 14:20 | disposition home or self-care (01) | DRG 244 ==
LOC: ED 07:39 → MED 14:43
PROVIDERS: ADMIT Internal Medicine; ATTEND Internal Medicine
DX: K57.20 Diverticulitis of large intestine with perforation and abscess without bleeding (principal); F17.200 Nicotine dependence, unspecified, uncomplicated; F41.9 Anxiety disorder, unspecified; F32.9 Major depressive disorder, single episode, unspecified; Z88.8 Allergy status to other drugs, medicaments and biological substances; Z80.1 Family history of malignant neoplasm of trachea, bronchus and lung
CPT/HCPCS: 36415; 74177; 80053; 81003; 81015; 85025; 86140; 86703; 87086; J0744; J2270; J3490; Q9967

== ENCOUNTER 2019-09-21 09:29 | Emergency (ER) | payer SELFPAY ==
[2019-09-21] MEDS ORDERED: Ondansetron INJ* 2 MG/ML VIAL IV ONE (10:06)
[2019-09-21] MEDS ORDERED: Morphine 4 MG/ML VIAL (1 ml) 4 MG/ML VIAL IV ONE ×2 (10:06→11:33)
[2019-09-21] MEDS ORDERED: NS 0.9% 1000 ML** 1,000 ML IV ONE (10:06)
[2019-09-21 10:19] LABS: ABS Basophils 0.1 10^3/ul (0-0.2); ABS Eosinophils 0.2 10^3/ul (0-0.6); ABS Lymphocytes 1.7 10^3/ul (1.0-4.8); ABS Monocytes 0.9 10^3/ul (0-0.8); ABS Neutrophils 8.4 10^3/ul (1.5-7.7); Eosinophil % 1.8 %; Hematocrit 42 % (42-52); Hemoglobin 14.5 g/dL (14.0-18.0); Lymphocyte % 15.2 %; Mean Corpuscular HGB Conc 34 g/dL (31-36); Mean Corpuscular Hemoglobin 31 pg (27-31); Mean Corpuscular Volume 89 fL (80-94); Mean Platelet Volume 7.9 fL (7.4-10.4); Platelet Count 189 10^3/uL (150-450); Red Blood Count 4.74 10^6 /uL (4.18-5.48); Red Cell Distribution Width 14 % (10-15); White Blood Count 11.3 10^3/uL (3.5-10.8)
[2019-09-21 10:42] LABS: Albumin 4.2 g/dL (3.2-5.2); Albumin/Globulin Ratio 1.7 (1-3); BUN/Creatinine Ratio 21.9 (8-20); C Reactive Protein 80.86 mg/L (<8.01); Calcium 9.1 mg/dL (8.6-10.3); EGFR African American 106.6 (>60); EGFR Non-African American 88.1 (>60); Globulin 2.5 g/dL (2-4); Magnesium 2.1 mg/dL (1.9-2.7); Potassium 4.1 mmol/L (3.5-5.0); Total Bilirubin 0.6 mg/dL (0.2-1.0); Total Protein 6.7 g/dL (6.4-8.9)
--- NOTE | 2019-09-21 10:47 | ED ---
Abdominal Pain/Male - HPI Summary HPI Summary: Patient is a 38-year-old male who presents with 2 weeks of gradually worsening abdominal pain. Over the past 2-3 days the pain has gotten significantly worse. States the pain is localized to the LLQ, does not radiate. Rates pain 7/10. Has taken Aspirin with minimal relief. Admits to having diarrhea multiple times over the past 2 weeks. Denies hematochezia or tarry stools. Patient states that he had diverticulitis 2 years ago and the pain today is exactly the same as what he felt at that time. Denies nausea, vomiting. Denies urinary frequency, dysuria. Patient does not have a PCP. Last BM 2 days ago, diarrhea. Denies any diffuse abd pain. - History of Current Complaint Chief Complaint: EDAbdPain Stated Complaint: DIVERTIC. PAIN PER PT Time Seen by Provider: 09/21/19 09:53 Hx Obtained From: Patient Onset/Duration: Gradual Onset Timing: Constant Severity Initially: Moderate Severity Currently: Moderate Pain Intensity: 7 Pain Scale Used: 0-10 Numeric Location: Discrete At: LLQ Radiates: No Character: Cramping Aggravating Factor(s): Nothing Alleviating Factor(s): Nothing Associated Signs And Symptoms: Positive: Negative, Vomiting. Negative: Constipation, Blood in Stool, Diarrhea, Penile Discharge - Risk Factors Testicular Torsion: Negative Cardiac Risk Factors: Negative - Allergies/Home Medications Allergies/Adverse Reactions: Allergies Allergy/AdvReac Type Severity Reaction Status Date / Time cephalexin [From Keflex] Allergy Unknown Verified 09/21/19 09:54 Reaction Details diazepam Allergy Unknown Verified 09/21/19 11:50 Reaction Details Home Medications: Home Medications Sulfamethox/Trimethoprim DS* [Bactrim DS 800/160 TAB*] 1 tab PO BID 09/21/19 [ History Confirmed 09/21/19] PMH/Surg Hx/FS Hx/Imm Hx Previously Healthy: Yes Endocrine/Hematology History: Denies: Hx Diabetes Cardiovascular History: Denies: Hx Hypertension GI History: Reports: Other GI Disorders - Diverticulitis History: Denies: Hx Renal Disease Sensory History: Denies: Hx Contacts or Glasses, Hx Hearing Aid Opthamlomology History: Denies: Hx Contacts or Glasses Psychiatric History: Reports: Hx Anxiety Denies: Hx Eating Disorder, Hx of Violent Episodes Against Others - Immunization History Date of Tetanus Vaccine: UTD Date of Influenza Vaccine: 10/02/17 Hx Pertussis Vaccination: No Immunizations Up to Date: Yes Infectious Disease History: No Infectious Disease History: Denies: Traveled Outside the [place] in Last 30 Days - Family History Known Family History: Negative: Cardiac Disease, Hypertension, Diabetes Family History: FHx of alcohol abuse. FHx of depression. FHx of anxiety disorders - Social History Occupation: Employed Full-time Lives: With Family Alcohol Use: None Hx Substance Use: No Substance Use Type: Reports: None Hx Tobacco Use: Yes Smoking Status (MU): Former Smoker Type: Cigarettes Amount Used/How Often: 1 PPD Length of Time of Smoking/Using Tobacco: 20 years Review of Systems Positive: Fever, Chills Eyes: Negative ENT: Negative Cardiovascular: Negative Negative: Chest Pain Respiratory: Negative Negative: Shortness Of Breath Positive: Abdominal Pain, Diarrhea. Negative: Vomiting, Nausea Genitourinary: Negative Positive: no symptoms reported. Negative: burning, dysuria, frequency, hematuria Musculoskeletal: Negative Skin: Negative Neurological: Negative Psychological: Normal All Other Systems Reviewed And Are Negative: Yes Physical Exam Triage Information Reviewed: Yes Vital Signs On Initial Exam: Initial Vitals Temp Pulse Resp BP Pulse Ox 99.9 F 100 16 112/75 97 09/21/19 09:31 09/21/19 09:31 09/21/19 09:31 09/21/19 09:31 09/21/19 09:31 Vital Signs Reviewed: Yes Appearance: Positive: Well-Appearing, No Pain Distress, Well-Nourished Skin: Positive: Warm, Skin Color Reflects Adequate Perfusion, Dry Head/Face: Positive: Normal Head/Face Inspection Eyes: Positive: Normal, EOMI, ANTONI ENT: Positive: Normal ENT inspection, Hearing grossly normal Neck: Positive: Supple, Nontender, No Lymphadenopathy Respiratory/Lung Sounds: Positive: Clear to Auscultation, Breath Sounds Present Cardiovascular: Positive: Normal, RRR, Pulses are Symmetrical in both Upper and Lower Extremities, S1, S2 Abdomen Description: Positive: Soft, Other: - Positive tenderness in all 4 quadrants. Significantly tenderness to LLQ.. Negative: Distended Bowel Sounds: Positive: Present Musculoskeletal: Positive: Normal Neurological: Positive: Normal Psychiatric: Positive: Normal, Affect/Mood Appropriate Procedures - Sedation Patient Received Moderate/Deep Sedation with Procedure: No Diagnostics - Vital Signs Vital Signs Temp Pulse Resp BP Pulse Ox 09/21/19 09:31 99.9 F 100 16 112/75 97 - Laboratory Lab Results: Lab Results 09/21/19 09/21/19 Range/Units 10:12 10:12 WBC 11.3 H (3.5-10.8) 10^3/uL RBC 4.74 (4.18-5.48) 10^6 /uL Hgb 14.5 (14.0-18.0) g/dL Hct 42 (42-52) % MCV 89 (80-94) fL MCH 31 (27-31) pg MCHC 34 (31-36) g/dL RDW 14 (10-15) % Plt Count 189 (150-450) 10^3/uL MPV 7.9 (7.4-10.4) fL Neut % (Auto) 74.4 % Lymph % (Auto) 15.2 % [place] % (Auto) 7.8 % Eos % (Auto) 1.8 % Baso % (Auto) 0.8 % Absolute Neuts (auto) 8.4 H (1.5-7.7) 10^3/ul Absolute Lymphs (auto) 1.7 (1.0-4.8) 10^3/ul Absolute Monos (auto) 0.9 H (0-0.8) 10^3/ul Absolute Eos (auto) 0.2 (0-0.6) 10^3/ul Absolute Basos (auto) 0.1 (0-0.2) 10^3/ul Absolute Nucleated RBC 0.0 10^3/ul Nucleated RBC % 0.0 Lactic Acid 0.7 (0.5-2.0) mmol/L Result Diagrams: 09/21/19 10:12 09/21/19 10:12 Lab Statement: Any lab studies that have been ordered have been reviewed, and results considered in the medical decision making process. Abdominal Pain Male Course/Dx - Course Course Of Treatment: 38-year-old male with abdominal pain x 2 weeks, significantly worse for the past 2-3 days. PMH of diverticulitis, states similar symptoms as before. Patient has tenderness to the left lower quadrant on exam without tenderness diffusely throughout the abdomen otherwise. No pain to the flanks. Patient is not diaphoretic and vital signs are stable. He does appear to be in some pain distress and is rating his pain currently a 7/10. He denies any nausea at this time. He states he had diarrhea 2 days ago, however this has since resolved. He states symptoms are similar to his episode of diverticulitis 2 years ago. Labs obtained which show a slightly elevated white count and elevated CRP. CT abdomen/pelvis: IMPRESSION: 1. THERE IS DIVERTICULOSIS OF THE SIGMOID COLON WITH PERICOLONIC INFLAMMATORY CHANGE SUGGESTIVE OF DIVERTICULITIS WITHOUT LOCULATED FLUID COLLECTION TO SUGGEST ABSCESS. 2. THERE IS DIFFUSE MUCOSAL THICKENING OF THE SIGMOID COLON. WHILE THIS MAY REFLECT INFLAMMATION ASSOCIATED DIVERTICULITIS, COLONIC MUCOSAL NEOPLASM MAY GIVE A SIMILAR APPEARANCE. RECOMMEND CONSIDERATION OF REPEAT IMAGING OR CORRELATION WITH DIRECT VISUALIZATION AFTER RESOLUTION OF THE ACUTE SYMPTOMS. 3. THERE IS A LOW-ATTENUATION LESION OF THE RIGHT LOBE OF LIVER NOT CLEARLY SEEN ON THE PREVIOUS EXAMINATION MEASURING 0.8 CM. RECOMMEND CONSIDERATION OF FURTHER EVALUATION WITH MULTIPHASE CONTRAST-ENHANCED LIVER PROTOCOL CT OR CONTRAST-ENHANCED MRI OF THE ABDOMEN AND THE NONACUTE SETTING. 4. ATHEROSCLEROSIS. - Diagnoses Differential Diagnosis/HQI/PQRI: Appendicitis, Diverticulitis, Urinary Tract Infection Provider Diagnoses: Diverticulitis Discharge ED - Sign-Out/Discharge Documenting (check all that apply): Patient Departure - Discharge Plan Condition: Stable Disposition: HOME Prescriptions: Ciprofloxacin TAB* [Cipro 500 MG TAB*] 500 mg PO BID #14 tab metroNIDAZOLE [Flagyl 500 MG TAB] 500 mg PO TID #21 tab traMADol TAB* [Ultram*] 50 mg PO Q8H PRN #6 tab MDD 3 PRN Reason: Pain Patient Education Materials: Diverticulitis (ED), Diverticulitis Diet (ED) Referrals: Denys Solares MD [Medical Doctor] - Joann Billingsley NP [Primary Care Provider] - Additional Instructions: Ciprofloxacin twice daily 7 days Metronidazole 3 times daily 7 days Tramadol up to 3 times daily as needed for discomfort Please follow-up with GI specialist as soon as possible Call to make an appointment - Billing Disposition and Condition Condition: STABLE Disposition: Home
[2019-09-21 11:31] LABS: HIV 4th Generation Nonreactive (Nonreactive)
[2019-09-21] MEDS ORDERED: Iohexol 300* (CONTRAST) 10 ML SDV IV ONE (12:44)
[2019-09-21 13:20] VITALS: BP 122/71
== END 2019-09-21 13:21 | disposition home or self-care (01) ==
LOC: ED 09:29
DX: K57.32 Diverticulitis of large intestine without perforation or abscess without bleeding (principal); K76.9 Liver disease, unspecified; I70.0 Atherosclerosis of aorta; F41.9 Anxiety disorder, unspecified; Z87.891 Personal history of nicotine dependence; Z88.1 Allergy status to other antibiotic agents; Z88.8 Allergy status to other drugs, medicaments and biological substances
CPT/HCPCS: 36415; 74177; 80053; 83605; 83690; 83735; 85025; 86140; 87389; 96361; 96374; 96375; 96376; 99283; J2270; J2405; Q9967